=== PATIENT | female | born 1985 ===

== ENCOUNTER 2020-09-28 22:52 | Emergency (ER) | payer SELFPAY ==
[~2020-09-28] VITALS: Ht 162.6 cm; Wt 76.0 kg
[2020-09-28 22:53] VITALS: BP 135/90
== END 2020-09-28 23:39 | disposition left against medical advice (07) ==
LOC: M ED 22:52
DX: Z53.21 Procedure and treatment not carried out due to patient leaving prior to being seen by health care provider (principal)